=== PATIENT | male | born 1975 | race Hispanic/Latino ===

== ENCOUNTER → 2018-09-01 | Outpatient (CLI) | payer OTHER ==
[~2018-09-01] MED LIST: GADODIAMIDE 5 MMOL/10 ML VIAL 5 MMOL/10 ML ML IV ONE
== END | disposition home or self-care (01) ==
LOC: RAH 13:54 → EEVIPCON 13:54
PROVIDERS: ATTEND Internal Medicine
DX: H91.91 Unspecified hearing loss, right ear (principal)
CPT/HCPCS: 70553 ×2; A9579